=== PATIENT | female | born 1980 | race Caucasian/White ===

== ENCOUNTER 2016-12-10 12:19 | Emergency (ER) | payer SELFPAY ==
--- NOTE | 2016-12-10 14:39 | ER Document Report ---
ED Headache - General Mode of Arrival: Ambulatory Information source: Patient TRAVEL OUTSIDE OF THE [place] IN LAST 30 DAYS: No - HPI Patient complains to provider of: Headache, Facial pain Onset: Other - see HPI Note Similar symptoms previously: No Recently seen / treated by doctor: No - General Chief Complaint: Headache Stated Complaint: HEADACHE Notes: Patient is a 36-year-old female presenting to the emergency department for headache and some nausea. Patient states she's had this headache for one week. Patient states she has had increased stress and computer use while at work this week. Patient denies any fever, chills, sweats, slurred speech, or weakness. Patient states it feels like her eyebrows are "squeezing together." Patient denies any family history of aneurysms. Patient states her uncle from blood clot after surgery. Patient states she is allergic to Dilaudid. Patient's primary care physician is Dr. Lowe. (JDNAVIN) - Related Data Allergies/Adverse Reactions: No Known Allergies Allergy (Verified 12/10/16 12:25) Past Medical History - General Information source: Patient - Social History Smoking Status: Never Smoker Cigarette use (# per day): No Chew tobacco use (# tins/day): No Frequency of alcohol use: None Drug Abuse: None Family History: None Patient has suicidal ideation: No Patient has homicidal ideation: No - Past Medical History Cardiac Medical History: Reports: Hx Hypertension - 2006 /meds post delivery GI Medical History: Reports: Hx Gastroesophageal Reflux Disease Past Surgical History: Reports: Hx Section - 3 - Immunizations Hx Diphtheria, Pertussis, Tetanus Vaccination: Yes - 2000 Review of Systems - Review of Systems Constitutional: No symptoms reported EENT: No symptoms reported Cardiovascular: No symptoms reported Respiratory: No symptoms reported Gastrointestinal: See HPI, Nausea Genitourinary: No symptoms reported Female Genitourinary: No symptoms reported Musculoskeletal: No symptoms reported Skin: No symptoms reported Hematologic/Lymphatic: No symptoms reported Neurological/Psychological: See HPI, Headaches -: Yes All other systems reviewed and negative Physical Exam - Vital signs Interpretation: Hypertensive - General General appearance: Appears well, Alert In distress: Mild - HEENT Head: Normocephalic, Atraumatic Eyes: Normal Pupils: PERRL Mucous membranes: Moist - Respiratory Respiratory status: No respiratory distress Chest status: Nontender Breath sounds: Normal Chest palpation: Normal - Cardiovascular Rhythm: Regular Heart sounds: Normal auscultation Murmur: No - Abdominal Inspection: Normal Distension: No distension Bowel sounds: Normal Tenderness: Nontender Organomegaly: No organomegaly - Back Back: Normal, Nontender - Extremities General upper extremity: Normal inspection, Normal ROM, Normal strength General lower extremity: Normal inspection, Normal ROM, Normal strength - Neurological Neuro grossly intact: Yes Cognition: Normal Orientation: AAOx4 Rahul Coma Scale Eye Opening: Spontaneous [place] Coma Scale Verbal: Oriented [place] Coma Scale Motor: Obeys Commands Rahul Coma Scale Total: 15 Speech: Normal - Psychological Associated symptoms: Normal affect, Normal mood - Skin Skin Temperature: Warm Skin Moisture: Dry Course - Re-evaluation Re-evalutation: 12/10/16 14:58 Patient presented to the emergency Department with 1 week history of frontal headache feels like she is squinching her eyes and it's spasming. No associated blurred vision double vision gradual onset not the worse headache of her life took small [id number] stuff without any relief denies any history of headaches. Denies any blurred vision double vision neck pain stiffness fever or chills cough slurred speech strokelike symptoms numbness tingling weakness loss of bowel or bladder function family history of migraines or aneurysm. On examination her blood pressure is elevated she states she does not have a history of elevated blood pressure. She said she's anxious I told her that she needs to get her blood pressure rechecked first thing on Tuesday by the family doctor if it's persistently elevated she may need to be started on medication. On examination she is well-appearing nontoxic no acute distress drove herself here HEENT is normal pupils are direct light bilaterally Sirs are moist no strokelike symptoms no facial tenderness drainage from the nose completely normal neurological exam with GCS of 15 and no neurological deficits. Patient wanted to be treated here with the medications so with ride verification I order Toradol Reglan and Benadryl. At this time she is no follow-up with her primary care physician on Tuesday and return for increasing worsening or new symptoms 12/10/16 15:01 (DIANN GRECO) - Vital Signs Vital signs: Temp Pulse Resp BP Pulse Ox 98.3 F 67 16 144/97 H 98 12/10/16 15:24 12/10/16 15:24 12/10/16 15:24 12/10/16 15:24 12/10/16 15:24 Discharge - Discharge Clinical Impression: cephalgia Condition: Stable Disposition: HOME, SELF-CARE Instructions: Headache ([facility]) Additional Instructions: Headache The physician does not feel that the headache you are experiencing has a serious underlying cause. Most headaches are due to emotional stress, with resultant muscle tension (tension headache). Occasionally, headaches are secondary to changes in the blood vessels of the scalp (vascular headache and migraine headache). Sometimes, a headache is the first symptom of another developing illness, such as a viral infection. You have no evidence of stroke, bleeding, meningitis, or other serious cause of your headache. The treatment of headaches varies with the severity and cause of the pain. Not all headaches need pain shots. In fact, there is evidence that using narcotics for headaches may make them worse in the long run. The physician will determine the therapy that's in your best interest. If you develop a fever, if the headache is different from any you've previously experienced, or if the headache progressively worsens, then call your physician at once or go to the emergency room. Forms: Return to Work Referrals: [facility] [Provider Group] - Follow up in 3-5 days (Call for an appointment to be seen in follow-up 2-3 days return for increasing worsening or new symptoms) Scribe Attestation: 12/10/16 15:00 I personally performed the services described in the documentation reviewed the documentation recorded by my scribe in my presence and it accurately and completely records my words and actions (DIANN GRECO) Scribe Documentation - Scribe Written by Paige:: Navin Doran 12/10/16 16:18 acting as scribe for :: Marck
[2016-12-10] MEDS ORDERED: KETOROLAC TROMETHAMINE 60 MG/2 ML SDV IM ONE (14:43)
[2016-12-10] MEDS ORDERED: METOCLOPRAMIDE HCL INJ/PF 10 MG/2 ML SDV IM ONE (14:44)
[2016-12-10] MEDS ORDERED: DIPHENHYDRAMINE HCL 50 MG/ML VIAL IM ONE (14:45)
[2016-12-10 15:33] VITALS: BP 144/97
== END 2016-12-10 15:24 | disposition home or self-care (01) ==
LOC: ER 12:19
DX: R51 Headache (principal); R11.0 Nausea; F41.9 Anxiety disorder, unspecified; R03.0 Elevated blood-pressure reading, without diagnosis of hypertension; Z88.5 Allergy status to narcotic agent
CPT/HCPCS: 99283; 96372; J1200; J1885; J2765